=== PATIENT | male | born 1970 | race Caucasian/White ===

== ENCOUNTER 2022-04-15 07:13 | Observation (INO) | payer BC ==
[2022-04-14 08:07] LABS: BASOPHILS # (AUTO) 0.1 (0.0-0.1); EOSINOPHILS # (AUTO) 0.1 (0.0-0.4); EOSINOPHILS % 2.7 % (0.0-6.0); HEMATOCRIT 45.1 % (38.2-49.6); HEMOGLOBIN 15.3 g/dL (14.0-18.0); LYMPHOCYTES % 19.2 % (18.0-39.1); MEAN CORPUSCULAR HEMOGLOBIN 30.4 pg (28-32); MEAN CORPUSCULAR HGB CONC 33.9 g/dL (31-35); MEAN CORPUSCULAR VOLUME 89.7 fL (81-99); MONOCYTES # (AUTO) 0.6 (0.2-0.8); MONOCYTES % 11.9 % (4.4-11.3); NEUTROPHILS # (AUTO) 3.3 (2.1-6.9); PLATELET COUNT 239 x10e3/uL (140-360); RED BLOOD COUNT 5.03 x10e6/uL (4.3-5.7); RED CELL DISTRIBUTION WIDTH 12.9 % (11.7-14.4)
[2022-04-14 08:19] LABS: INR 1.09; PARTIAL THROMBOPLASTIN TIME 30.9 seconds (23.8-35.5); PROTHROMBIN TIME 14.3 seconds (11.9-14.5)
[2022-04-14 08:30] LABS: ANION GAP 13.3 mmol/L (8-16); BLOOD UREA NITROGEN 14 mg/dL (7-26); BUN/CREATININE RATIO 14 (6-25); CALCIUM 9.7 mg/dL (8.4-10.2); CARBON DIOXIDE 28 mmol/L (22-29); CHLORIDE 103 mmol/L (98-107); CREATININE, SERUM 0.98 mg/dL (0.72-1.25); GLUCOSE 78 mg/dL (74-118); POTASSIUM 4.3 mmol/L (3.5-5.1); SODIUM 140 mmol/L (136-145)
[~2022-04-15] VITALS: Ht 180.3 cm; Wt 95.3 kg
[~2022-04-15 07:13] MED LIST: TESTOSTERO100 MG/1 M IM
[2022-04-15] MEDS ORDERED: CEFAZOLIN SODIUM 2 GM ONE (09:19)
[2022-04-15] MEDS ORDERED: SUGAMMADEX SODIUM 200 MG/2 ML VIAL IV ONE ×2 (11:04→13:05)
[2022-04-15] MEDS ORDERED: ACETAMINOPHEN 1000 MG/100 ML 100 ML IV ONE (11:04)
[2022-04-15] MEDS ORDERED: ROCURONIUM BROMIDE 10 MG/ML 5ML VIAL IV ONE (12:15)
[2022-04-15] MEDS ORDERED: POVIDONE IODINE 0.05% 0.05 % ML PO ONE (12:15)
[2022-04-15] MEDS ORDERED: ONDANSETRON HCL INJ 2MG/ML 2ML 2 MG/ML VIAL ONE (12:15)
[2022-04-15] MEDS ORDERED: KETOROLAC TROMETHAMINE 30 MG/ML VIAL ONE (12:15)
[2022-04-15] MEDS ORDERED: DEXAMETHASONE SOD PHOS INJ 4 MG/ML SDV ONE (12:15)
[2022-04-15] MEDS ORDERED: SEVOFLURANE INHAL SOLN 250 ML PEN BTL ONE (12:15)
[2022-04-15] MEDS ORDERED: LIDOCAINE HCL 2% LOCAL INJ 5 ML SDV VIAL INJ ONE (12:15)
[2022-04-15] MEDS ORDERED: PROPOFOL IV EMULSION 10 MG/ML 20 ML VIAL ONE (12:15)
[2022-04-15] MEDS ORDERED: FENTANYL CITRATE/PF 100MCG/2 ML INJ ONE ×2 (12:33→13:28)
[2022-04-15] MEDS ORDERED: HYDROCODON-ACE1 EA12 PO (12:56)
[2022-04-15] MEDS ORDERED: ACETAMINOPHEN 325 MG TAB PO PRN (13:00)
[2022-04-15] MEDS ORDERED: PROMETHAZINE HCL (IM) 25 MG/ML VIAL IM PRN (13:00)
[2022-04-15] MEDS ORDERED: MORPHINE SULFATE 5 MG/ML VIAL IM PRN (13:00)
[2022-04-15] MEDS ORDERED: MAGNESIUM/ALUMINUM/SIMETHICONE 30 ML UDC PO PRN (13:00)
[2022-04-15] MEDS ORDERED: CARISOPRODOL 350 MG TAB PO PRN (13:00)
[2022-04-15] MEDS ORDERED: ZOLPIDEM TARTRATE 5 MG TAB PO PRN (13:00)
[2022-04-15] MEDS ORDERED: HYDROMORPHONE 1MG/1ML INJ ONE (13:40)
[2022-04-15 14:27] VITALS: BP 146/91
[2022-04-15] MEDS: OXYCODONE/ACETAMINOPHEN 5-325 1 EACH TABLET PO PRN ×2 (14:27→18:10)
[2022-04-15] MEDS: LACTATED RINGER'S 1,000 ML IV SCH ×2 (14:27→21:20)
[2022-04-15 14:28] VITALS: BP 146/91
[2022-04-15 16:43] VITALS: BP 119/77
[2022-04-15 20:00] VITALS: BP 122/74
[2022-04-15] MEDS: HYDROMORPHONE 2MG/ML 2 MG/ML ML IV PRN (20:29)
[2022-04-15] MEDS: ONDANSETRON HCL INJ 2MG/ML 2ML 2 MG/ML VIAL IV PRN (20:29)
[2022-04-16] MEDS: ONDANSETRON HCL INJ 2MG/ML 2ML 2 MG/ML VIAL IV PRN ×2 (01:16→06:23)
[2022-04-16] MEDS: HYDROMORPHONE 2MG/ML 2 MG/ML ML IV PRN ×3 (01:17→10:45)
[2022-04-16] MEDS: LACTATED RINGER'S 1,000 ML IV SCH (05:40)
[2022-04-16 08:00] VITALS: BP 139/88
== END 2022-04-16 11:48 | disposition home or self-care (01) ==
LOC: OR 07:13 → PACU V 12:52 → MED/SURG3 14:03
PROVIDERS: ADMIT Neurological Surgery; ATTEND Neurological Surgery
DX: M50.01 Cervical disc disorder with myelopathy, high cervical region (principal); Z01.818 Encounter for other preprocedural examination; Z20.822 Contact with and (suspected) exposure to COVID-19
CPT/HCPCS: 0223U; 22551; 22552; 22845; 36415; 71046; 72040; 72125; 76000; 80048; 85025; 85610; 85730; 86850; 86900; 88304; 93005; C1713 ×5; C1763; G0378 ×2; J0131; J0690 ×2; J1100; J1170 ×3; J1885; J2001; J2405 ×2; J2704; J3010; J7121

== ENCOUNTER 2022-04-18 11:54 | Inpatient (IN) | payer BC ==
[~2022-04-18] VITALS: Ht 177.8 cm; Wt 95.3 kg
[~2022-04-18 11:54] MED LIST changes: +HYDROCODON-ACE1 EA12 PO
[2022-04-18 12:43] LABS: BASOPHILS # (AUTO) 0.1 (0.0-0.1); BASOPHILS % 0.6 % (0.0-1.0); EOSINOPHILS # (AUTO) 0.2 (0.0-0.4); EOSINOPHILS % 1.7 % (0.0-6.0); HEMATOCRIT 43.3 % (38.2-49.6); HEMOGLOBIN 14.5 g/dL (14.0-18.0); LYMPHOCYTES # (AUTO) 1.5 (1.0-3.2); MEAN CORPUSCULAR HEMOGLOBIN 30.5 pg (28-32); MEAN CORPUSCULAR HGB CONC 33.5 g/dL (31-35); MONOCYTES % 10.9 % (4.4-11.3); NEUTROPHILS # (AUTO) 6.1 (2.1-6.9); NEUTROPHILS % 69.6 % (38.7-80.0); PLATELET COUNT 255 x10e3/uL (140-360); RED BLOOD COUNT 4.76 x10e6/uL (4.3-5.7); RED CELL DISTRIBUTION WIDTH 12.8 % (11.7-14.4)
[2022-04-18] MEDS: FAMOTIDINE 20 MG/2 ML VIAL IV SCH ×2 (12:43→22:42)
[2022-04-18] MEDS ORDERED: SODIUM CHLORIDE 0.9% 1000ML 1,000 ML IV SCH (12:45)
[2022-04-18] MEDS ORDERED: DEXAMETHASONE SOD PHOS 10 MG/1 ML VIAL IV ONE (13:00)
[2022-04-18 13:01] LABS: ALBUMIN 3.7 g/dL (3.5-5.0); ALBUMIN/GLOBULIN RATIO 1.2 (0.8-2.0); ANION GAP 14.7 mmol/L (8-16); CALCIUM 8.5 mg/dL (8.4-10.2); POTASSIUM 3.7 mmol/L (3.5-5.1)
[2022-04-18] MEDS: SODIUM CHLORIDE 0.9% 1000ML 1,000 ML IV SCH (14:23)
[2022-04-18] MEDS: Morphine 4mg INJECTION 4 MG/ML INJ IV PRN ×3 (14:23→22:42)
[2022-04-18 14:27] VITALS: BP 154/109
[2022-04-18 15:44] VITALS: BP 154/109
[2022-04-18] MEDS: DEXAMETHASONE SOD PHOS INJ 4 MG/ML SDV IV SCH ×2 (16:36→22:42)
[2022-04-18 16:43] VITALS: BP 148/89
[2022-04-18 20:09] VITALS: BP 128/92
[2022-04-18 20:12] VITALS: BP 128/92
[2022-04-19] VITALS (8 sets, daily range): BP systolic 121–141; BP diastolic 82–97
[2022-04-19] MEDS: Morphine 4mg INJECTION 4 MG/ML INJ IV PRN ×6 (02:39→22:40)
[2022-04-19] MEDS: SODIUM CHLORIDE 0.9% 1000ML 1,000 ML IV SCH ×2 (02:58→21:44)
[2022-04-19] MEDS: DEXAMETHASONE SOD PHOS INJ 4 MG/ML SDV IV SCH ×5 (06:11→23:10)
[2022-04-19] MEDS: FAMOTIDINE 20 MG/2 ML VIAL IV SCH ×5 (06:11→23:10)
[2022-04-19 06:22] LABS: BASOPHILS % 0.1 % (0.0-1.0); HEMATOCRIT 41.9 % (38.2-49.6); HEMOGLOBIN 14.4 g/dL (14.0-18.0); LYMPHOCYTES # (AUTO) 0.8 (1.0-3.2); LYMPHOCYTES % 9.7 % (18.0-39.1); MEAN CORPUSCULAR HEMOGLOBIN 30.3 pg (28-32); MEAN CORPUSCULAR HGB CONC 34.4 g/dL (31-35); MEAN CORPUSCULAR VOLUME 88.2 fL (81-99); MONOCYTES # (AUTO) 0.2 (0.2-0.8); MONOCYTES % 2.9 % (4.4-11.3); NEUTROPHILS % 86.9 % (38.7-80.0); PLATELET COUNT 291 x10e3/uL (140-360); RED BLOOD COUNT 4.75 x10e6/uL (4.3-5.7); RED CELL DISTRIBUTION WIDTH 12.3 % (11.7-14.4)
[2022-04-19 06:45] LABS: CALCIUM 8.5 mg/dL (8.4-10.2); CREATININE, SERUM 0.76 mg/dL (0.72-1.25)
[2022-04-19 08:10] LABS: LYMPHOCYTES % (MANUAL) 10 % (19-48); MONOCYTES % (MANUAL) 4 % (3.4-9.0); NEUTROPHILS % (MANUAL) 84 % (40-74); PLATELET ESTIMATE ADEQUATE; PLATELET MORPHOLOGY COMMENT NORMAL; RBC MORPHOLOGY COMMENT NORMAL
[2022-04-20 01:08] VITALS: BP 125/87
[2022-04-20] MEDS: Morphine 4mg INJECTION 4 MG/ML INJ IV PRN ×2 (02:42→06:59)
[2022-04-20 05:15] VITALS: BP 134/89
[2022-04-20] MEDS: DEXAMETHASONE SOD PHOS INJ 4 MG/ML SDV IV SCH (06:13)
[2022-04-20] MEDS: FAMOTIDINE 20 MG/2 ML VIAL IV SCH (06:14)
[2022-04-20 08:29] VITALS: BP 135/89
[2022-04-20] MEDS ORDERED: BISACODYL 10 MG SUPP PR ONE (09:30)
== END 2022-04-20 10:17 | disposition home or self-care (01) | DRG 920 ==
LOC: ER 11:59 → ERHOLD 12:34 → MED/SURG3 13:52
PROVIDERS: ADMIT Internal Medicine; ATTEND Internal Medicine
DX: M96.841 Postprocedural hematoma of a musculoskeletal structure following other procedure (principal); K91.89 Other postprocedural complications and disorders of digestive system; R50.9 Fever, unspecified; R13.10 Dysphagia, unspecified; E78.5 Hyperlipidemia, unspecified; M19.90 Unspecified osteoarthritis, unspecified site; Z98.1 Arthrodesis status; G89.18 Other acute postprocedural pain; Z20.822 Contact with and (suspected) exposure to COVID-19
CPT/HCPCS: 36415; 70490; 71045; 80048; 80053; 84484; 85025; 87040; 93005; 94799; 99284; J1100; J2270; J7030

== ENCOUNTER → 2022-05-17 | Outpatient (CLI) | payer BC | LOC: RAD 10:12 | PROVIDERS: ATTEND Neurological Surgery | DX: M50.20 Other cervical disc displacement, unspecified cervical region (principal); M43.22 Fusion of spine, cervical region | CPT/HCPCS: 72050 ==

== ENCOUNTER → 2022-05-19 | Outpatient (CLI) | payer BC | LOC: MRI 09:26 | PROVIDERS: ATTEND Neurological Surgery | DX: M51.16 Intervertebral disc disorders with radiculopathy, lumbar region (principal) | CPT/HCPCS: 72148 ==